=== PATIENT | male | born 1975 | race Caucasian/White ===

== ENCOUNTER 2016-12-16 17:34 | Emergency (ER) | payer BC ==
[~2016-12-16] VITALS: Ht 167.6 cm; Wt 78.7 kg
[2016-12-16 19:39] LABS: HEMATOCRIT 44.7 % (38.0-50.0); MCH 27.6 PG (29.0-34.0); MCHC 32.7 G/DL (30.0-36.0); MCV 84.5 FL (86-99); MEAN PLAT.VOLUME 10.5 uM^3 (9.0-12.4); RBC DIS.WIDTH-CV 12.3 % (11.8-14.6); RBC DIS.WIDTH-SD 37.7 % (39-53); RED BLOOD COUNT 5.29 M/uL (4.00-5.50); WHITE BLOOD COUNT 8.8 K/uL (4.1-10.2)
[2016-12-16 19:41] LABS: PLATELET COUNT 261 K/uL (156-360)
[2016-12-16 19:52] LABS: CHLORIDE 99 mEq/L (99-109); POTASSIUM 3.6 mEq/L (3.7-5.4); SODIUM 140 mEq/L (136-147)
[2016-12-16 19:54] LABS: GLUCOSE 92 mg/dL (70-99)
[2016-12-16 19:55] LABS: ANION GAP 13 MEQ/L (2-14)
[2016-12-16 19:56] LABS: TOTAL BILIRUBIN 0.5 mg/dL (0.0-1.0)
[2016-12-16 19:58] LABS: ALKALINE PHOSPHATASE 95 IU/L (3-129); GFR ESTIMATE (CALCULATED) > 59 mL/min/
[2016-12-16 19:59] LABS: UREA NITROGEN (BUN) 16 mg/dL (9-23)
[2016-12-16] MEDS ORDERED: SKELAXIN800 MG PO (21:41)
[2016-12-16] MEDS ORDERED: NEURONTIN300 MG PO (21:41)
[2016-12-16] MEDS ORDERED: NAPROSYN500 MG PO (21:41)
[2016-12-16 21:50] VITALS: BP 121/74
== END 2016-12-16 21:53 | disposition home or self-care (01) ==
LOC: RME 17:34 → EME 17:34 → RME 21:53
PROVIDERS: Physician Assistant
DX: M54.81 Occipital neuralgia (principal); I10 Essential (primary) hypertension; Z87.891 Personal history of nicotine dependence
CPT/HCPCS: 70496; 70498; 80053; 85027; 99281; 99285; J2930; J3360; J7030